=== PATIENT | female | born 1960 | race Caucasian/White ===

== ENCOUNTER 2018-10-27 10:06 | Inpatient (IN) | payer BC ==
[~2018-10-27] VITALS: Ht 162.6 cm; Wt 131.0 kg
[2018-11-28] VITALS (10 sets, daily range): BP systolic 94–145; BP diastolic 50–79; PULSE 41–58; TEMP 97–98.3
[2018-11-28] MEDS ORDERED: K-TAB20 PO (08:14)
[2018-11-28] MEDS ORDERED: LASIX 20MG TABL20 MG PO (08:14)
[2018-11-28] MEDS ORDERED: TENORMIN 5050 MG/TAB PO (08:15)
[2018-11-28] MEDS ORDERED: VITAMIN C500 MG PO (08:16)
[2018-11-28] MEDS ORDERED: FOLIC ACID 40400 MCG PO (08:16)
[2018-11-28] MEDS ORDERED: FERROUS SU325 MG/TAB PO (08:17)
--- NOTE | 2018-11-28 16:12 | NUR ---
MICHELE met with the patient and patient's , Flip (ph#[phone]), to discuss discharge plan. The patient lives in [place] with her and son. She reports independence with ADLs and has a cane, walker, showerchair, and toliet riser. The patient's PCP is Dr. Hector Ashford and she receives her medications at the [facility] in [place]. She reports no difficulties obtaining her meds. The patient does not have advanced directives in EMR, but she states that she does have a Living Will completed and at home. She states that she may also have a DPOA-HC completed. The patient plans to return home with her and receive outpatient PT at [facility] upon discharge. No other identified needs at this time.
--- NOTE | 2018-11-28 16:45 | NUR ---
PT TO ROOM 332 PER BED WITH LEONARD JUNIOR SOFTWARE ENGINEER GIVING BEDSIDE REPORT @1525. PT IS A/O X3 WITH CLEAR LUNGS ACTIVE BOWEL SOUNDS. DRESSING TO LEFT KNEE CDI WITH ANGLE WRAP OVER SOFT ROLL. IV TO PUMP, PEDAL PULSES STRONG. VSS, HR MORIS IN LOW 40S BASELINE FOR PATIENT.
[2018-11-29 05:16] VITALS: BP 126/72; PULSE 75; TEMP 98.2
[2018-11-29 07:03] LABS: HEMATOCRIT 37.5 % (37.0-47.0)
--- NOTE | 2018-11-29 07:30 | NUR ---
PT RESTING IN BED DURING REPORT FROM VITOR SPENCE. DR DELUCA IN TO SEE PATIENT THIS AM. PT REPORTING SOME NAUSEA, IV ZOFRAN GIVEN ORDERED. VIKTORIYA MONTGOMERY APRN IN TO SEE PT THIS AM. SEE COMPUTER FOR ORDERS.
[2018-11-29 07:32] VITALS: BP 117/87; PULSE 72; TEMP 98.3
[2018-11-29] MEDS ORDERED: NORCO 325 MG-7.1 TAB PO (07:33)
[2018-11-29] MEDS ORDERED: ASPI325T6 PO (07:33)
[2018-11-29] MEDS ORDERED: ULTRAM 50MG TAB50 MG PO (07:34)
--- NOTE | 2018-11-29 08:58 | NUR ---
PT HAD NAUSEA THIS AM. GAVE MEDS ORDERED. PT STATES RELIFE. DRESSING TO LEFT KNEE CDI WITH AQUACEL OVER INCISION. PT ATE 50 % OF BREAKFAST. AM MEDS GIVEN ORDERED.
--- NOTE | 2018-11-29 09:46 | NUR ---
PT REPORTING MILD NAUSEA AFTER RECIEVING ZOFRAN THIS AM.
[2018-11-29 10:55] VITALS: BP 122/68; PULSE 65; TEMP 98.1
[2018-11-29 15:49] VITALS: BP 142/60; PULSE 67; TEMP 97.8
--- NOTE | 2018-11-29 16:52 | NUR ---
PT UP TO BR INDEPENDENTLY SEVERAL TIMES THIS PM. MOVING WELL WITH HUSBANDS ASSISTANCE.
--- NOTE | 2018-11-29 18:04 | NUR ---
PATIENT AMBULATING INDEPENDENTLY IN [place]. STEADY GAIT. PAIN WELL CONTROLLED WITH PO PAIN MEDS.
--- NOTE | 2018-11-29 20:00 | NUR ---
Report received, assumed care for restaurant shift leader. Assessment complete. VS stable. Denies need for pain medication rating pain 2/10 to left knee. Denies nausea-tolerating PO. INT to left hand flushes without difficulty. SCDs and TEDs bilat. Fresh ice pack applied. Plan of care discussed for pain control, ambulation and calling for assistance. Verbalizes understanding. Call light in reach. Bed in low position/wheels locked. Will monitor.
[2018-11-29 21:25] VITALS: BP 133/53; PULSE 86; TEMP 98.4
[2018-11-29 23:31] VITALS: BP 129/62; PULSE 80; TEMP 98.5
[2018-11-30 04:47] VITALS: BP 135/55; PULSE 80; TEMP 98.1
--- NOTE | 2018-11-30 05:50 | NUR ---
Up in chair at this time. C/o pain to left knee/thigh described as constant ache with intermittent sharpness. Roxicodone given per dr order. Fresh ice/water to cryocuff. Voiding without difficulty. Tolerating PO without nausea. Aquacell C/D/I. Denies any other needs. Call light in reach. Will monitor.
[2018-11-30 08:07] VITALS: BP 125/73; PULSE 86; TEMP 98.1
--- NOTE | 2018-11-30 09:55 | NUR ---
PT INDEPENDENT IN AMBULATION IN AND OUT OF ROOM. PAIN CONTROLLED WITH PO MEDS. PT TO DISCHARGE HOME THIS AM.
--- NOTE | 2018-11-30 10:43 | NUR ---
DISCHARGE INSTRUCTIONS REVIEWED WITH PATIENT AND . QUESTIONS SOLICITED AND ANSWERED. PT TAKEN TO FRONT BY WHEEL CHAIR.
== END 2018-11-30 10:45 | disposition home or self-care (01) | DRG 470 ==
LOC: JCC 11-28 07:44
PROVIDERS: ADMIT Orthopaedic Surgery
PROC: 0SRD0J9 Replacement of Left Knee Joint with Synthetic Substitute, Cemented, Open Approach (ICD-10-PCS; principal; 2018-11-28 14:40)
DX: M17.12 Unilateral primary osteoarthritis, left knee (principal); Z68.42 Body mass index [BMI] 45.0-49.9, adult; E66.01 Morbid (severe) obesity due to excess calories; I10 Essential (primary) hypertension
CPT/HCPCS: A4314; A9284; C1776; J0690; J2250; J2405; J2704; J3010; J7120